=== PATIENT | male | born 1965 | race Hispanic/Latino ===

== ENCOUNTER 2024-05-27 16:03 | Inpatient (IN) | payer BC, SELFPAY ==
[2024-05-27] VITALS (13 sets, daily range): BP systolic 108–179; BP diastolic 75–121; BMI 17.9
--- NOTE | 2024-05-27 10:43 | ED.GENMED ---
History of Present Illness
General
Chief Complaint: Abdominal Symptoms
Time Seen by Provider: 05/27/24 09:53
History of Present Illness
History of Present Illness:
58-year-old male history of HIV, hepatocellular carcinoma last received chemo on 05/02 presenting with nausea, vomiting, right upper abdominal pain worsening over the past 3 days. Patient states that he had a bloody bowel movement this morning.
Patient denies history of hemorrhoids. Patient states that he is treated at [facility]. Patient states that he was recently admitted to [facility], discharged yesterday for intractable nausea/vomiting/abdominal pain. Patient states due to worsening symptoms he
presents to the ER today. Patient denies chest pain, fever, or urinary symptoms. Pt is not on blood thinners.
Phy Exam
Physical Exam
Physical Exam:
General: Alert, no acute distress
Head: NCAT
Eyes: clear conjunctiva
Neck: supple
Cardiac: regular rate and rhythm, no murmur
Lungs: clear to auscultation bilaterally. No wheezes, rales, or rhonchi. Speaking full unlabored sentences. No respiratory distress.
Abdomen: soft, nondistended ruq and epigastric tenderness. No rebound or guarding.
: bloody stools, guaiac positive. no hemorrhoid visualized
MSK: no lower extremity edema bilaterally. No deformity
Skin: warm, dry
Neuro: Alert and oriented x3. no focal deficits
Course
Orders/Labs/Results
Orders:
Orders
05/27/24
Electrocardiogram (*1) Stat
Comment: ALREADY DONE
05/27/24 10:28
CMP [Comprehensive Metabolic Panel] Urgent
Complete Blood Count/With Diff Urgent
Lipase Urgent
PTT Urgent
Prothrombin Time Urgent
05/27/24 10:42
CT Abd/pelvis Angio W/wo Iv Urgent
Comment:
Reason For Exam: hematchezia, hx hepatocellular ca, upper abd pn
05/27/24 10:46
0.9% Sodium Chloride 1000 ml [Nss] 1,000 ml IV BOLUS
Ondansetron Injectable [Zofran] 4 mg IV NOW STA
05/27/24 12:04
Metoclopramide [Reglan] 10 mg IV NOW STA
Abnormal Lab Results
05/27/24
10:28
WBC 3.6 L 10^3/uL
(4.8-10.8)
RDW 15.3 H %
(11.5-14.5)
Absolute Lymphs (auto) 0.9 L 10^3/uL
(1.2-3.4)
Monocytes % 13.9 H %
(1.7-9.3)
PT 14.8 H Sec
(11.4-14.6)
AST 196 H U/L
(17-59)
ALT 120 H U/L
(0-50)
Alkaline Phosphatase 152 H U/L
(38-126)
Lipase 401 H U/L
(23-300)
05/27/24 10:28
05/27/24 10:28
Vital Signs
Initial and Last Documented VS:
Initial Vital Signs
Temp Pulse Resp BP Pulse Ox
98.0 F 95 18 152/112 100
05/27/24 09:41 05/27/24 09:41 05/27/24 09:41 05/27/24 09:41 05/27/24 09:41
Last Documented Vital Signs
Temp Pulse Resp BP Pulse Ox
98.0 F 81 16 179/121 99
05/27/24 09:41 05/27/24 13:45 05/27/24 13:45 05/27/24 11:00 05/27/24 12:45
MDM/Problems Addressed
Differential Diagnosis Includes:
GI bleed, anemia, MARSHA, electrolyte abnormality, pancreatitis, worsening malignancy
MDM/Problems Addressed:
I discussed with patient's oncology team at [facility], states patient was admitted for intractable nausea/vomiting/upper abdominal pain last week, eloped yesterday. States last chemo was 05/02.
Results reviewed, elevated AST/ALT/alk phos (baseline, pt showed me his HIU portal with his most recent labs). Lipase 401 (previously normal last week). EKG shows NSR at 89bpm with MO 164 QTc 474 no stemi as read by me.
CTA abdomen/pelvis shows No findings to confirm active colonic bleeding. Limited evaluation of intestinal tract without oral contrast with some at least mild relative enhancement of some loops of small bowel as well as some fluid-filled small bowel,
nonspecific, cannot exclude enteritis. Numerous hepatic lesions corresponding with the patient's history of hepatocellular carcinoma. No prior outside study available for comparison. Questionable small volume gallbladder sludge.
On reevaluation, pt vomited after receiving zofran. Gave reglan with improvement. Discussed results with pt at bedside. Requested outside records, pt gave consent. Discussed with hospitalist for admission
*Critical Care Note
Total Time (30-74mins, 75-104mins- exclusive of procedures): Not Applicable
ED Attending Note
-
Portions of this chart may have been created with voice recognition software.� Occasional wrong word or��sound alike� substitutions may have occurred due to the inherent limitations of voice recognition software.
Discharge Plan
Departure
Patient Disposition: Admit
Date of Disposition: 05/27/24
Time of Disposition: 14:11
Presentation/result/management discussed w/ accepting MD/DO: Hospitalist
Discharge Problem:
Intractable nausea and vomiting, Hepatocellular carcinoma
Prescriptions:
No Action
ondansetron HCl [Zofran] 8 mg Tablet
8 mg PO [id number] PRN (Reason: nausea)
olanzapine 5 mg Tablet
5 mg PO DAILYPRN PRN (Reason: nausea)
gabapentin 100 mg Capsule
100 mg PO TIDPRN PRN (Reason: mild pain)
entecavir 1 mg Tablet
1 mg PO DAILY
Biktarvy 50-200-25 mg Tablet
1 tab PO DAILY
Referrals:
NONE,* [Family Provider] -
Interventions
Interventions:
*Risk Screen - Suicide Last Done: 05/27/24 09:41
*General Assessment Last Done: 05/27/24 09:41
*Neglect/Abuse Screening Last Done: 05/27/24 09:45
*ED- Fall Risk Assessment Last Done: 05/27/24 10:21
*ED COVID-19 Vaccine History Last Done: 05/27/24 09:45
AW-[id number]-[id number] Assessment Last Done: 05/27/24 10:21
Discharge Date and Time
Print Language: SWEDISH
[2024-05-27 10:53] LABS: Hematocrit 46.1 % (39.0-52.0); Hemoglobin 15.5 g/dL (13.0-18.0); Mean Corp Hgb Conc. 33.6 g/dL (33.0-37.0); Mean Corpuscular Hgb 27.3 pg (27.0-31.0); Mean Corpuscular Volume 81.3 fL (80.0-94.0); Mean Platelet Volume 9.6 fL (7.4-10.4); Platelet Count 146 10^3/uL (130-400); Red Blood Cell Count 5.67 10^6/uL (4.70-6.10); Red Cell Dist. Width 15.3 % (11.5-14.5); White Blood Cell Count 3.6 10^3/uL (4.8-10.8)
[2024-05-27 10:59] LABS: APTT 31.1 Sec (23.4-35.0); INR 1.13; PT 14.8 Sec (11.4-14.6)
[2024-05-27 11:08] LABS: ALT (SGPT) 120 U/L (0-50); AST (SGOT) 196 U/L (17-59); Alkaline Phosphatase 152 U/L (38-126); Blood Urea Nitrogen 14 mg/dl (9-20); Carbon Dioxide 30 mmol/L (22-30); Chloride 100 mmol/L (98-107); Estimated Creatinine Clearance 88 ml/min; Glucose 96 mg/dl (70-99); Lipase 401 U/L (23-300); Potassium 3.8 mmol/L (3.5-5.1); Sodium 135 mmol/L (135-145); Total Bilirubin 1.1 mg/dl (0.2-1.3); Total Protein 7.5 g/dl (6.3-8.2); eGFR > 60.00
[2024-05-27] MEDS: NSS 1000 IV ×2 (11:20→18:17)
[2024-05-27] MEDS: ZOFRAN 4 MG IV (11:20)
[2024-05-27 11:27] LABS: % Basophils 0.6 % (0-2); % Eosinophils 0.6 % (0-6); % Immature Granulocytes 0.3 % (0-0.5); % Lymphocytes 25.8 % (20.5-51.1); % Monocytes 13.9 % (1.7-9.3); % Neutrophils 58.8 % (42.2-75.2); Absolute Lymphocytes 0.9 10^3/uL (1.2-3.4); Absolute Monocytes 0.5 10^3/uL (0.1-0.6); Absolute Neutrophils 2.1 10^3/uL (1.4-6.5); Nucleated Red Blood Cells % 0 % (-)
[2024-05-27] MEDS: REGLAN 10 MG IV ×2 (12:06→18:22)
--- NOTE | 2024-05-27 14:29 | HPS.HSE ---
Family Physician
-
Family Physician: * NONE
Chief Complaint
-
Hemoptysis 2-3 episodes, bright red blood while wiping today
History of Present Illness
58-year-old male with history of HIV and hepatocellular carcinoma Dx 1 year ago last receiving chemo on 05/02 . He reports he has had nausea, vomiting, right upper abdominal pain over the past 3 days to 4 days. He is never had that so far apart
from chemo. He works in [employer] and on Sunday took the train in to have his chemo that was scheduled on 05/23 while they were taking his vital signs they noted his heart rate to be elevated in the 160s so they sent him [facility] to [facility] in [facility] where he was admitted for the past 4 days for tachycardia, intractable nausea vomiting and upper abdominal pain. he eloped yesterday per his oncology team in the ER spoke with. He states he has a black toilet on which he
voids. He reports 2-3 episodes of hemoptysis along with 1 episode this a.m. of bright red blood when wiping and 1 formed hard stool he is unable to see the color in the toilet as his toilet is black in color. He states they typically give him
Haldol subcu for nausea. He tends to get long episodes of nausea and vomiting post chemo but this did not develop until 3 to 4 days ago. He follows with Dr. Micaela Russell nurse practitioner infectious disease at [facility] for his
HIV. He has had a follow-up within the past 6 months he does not recall his CD4 counts however there were no medication changes to his HIV meds. He he said he states to get very anxious and suicidal knowing those numbers and cannot handle it.
He is guaiac positive with bloody stool in the ER no external hemorrhoids visualized. He has chronic transaminitis with AST and ALT around his baseline per phone portal labs. He had recent lipase is elevated at 401 was normal last week. He had
CTA abdomen and pelvis showing no GI bleed pancreas unremarkable and hepatocellular carcinoma. He has past medical history of HIV Dx 30 years ago, hepatocellular carcinoma Dx 1 year ago on chemo, chronic pain, anxiety/depression, marijuana use daily
Medical History
Past Medical History
Past Medical History: Reports Other
Additional Past Medical History:
HIV Dx 30 years ago
hepatocellular carcinoma Dx 1 year ago on chemo
chronic pain
anxiety/depression
marijuana use daily
Past Surgical History: Reports Other
Additional Past Surgical History:
Port placement right upper chest wall for chemotherapy
Social History
Tobacco: Smoker (Marijuana)
Alcohol: None
Drug: Marijuana (Smokes 2 joints a day)
Personal: Single
Living: Alone
Employment: Employed (Works in [employer])
Family History
Family History: Other (Mother brain aneurysm age 39 Sister liver cancer 2 sisters living healthy father unknown)
Allergies / Home Medications
Allergies reflects when Allergies were last updated in [employer].
Home Medications with original date entered in [employer]
Allergy/Medication List:
Allergies
Allergy/AdvReac Type Severity Reaction Status Date / Time
morphine Allergy Hallucinati Verified 05/27/24 10:36
ons
Home Medications
bictegravir 50 mg-emtricitabine 200 mg-tenofovir alafenam 25 mg tablet (Biktarvy) 1 tab PO DAILY 05/27/24
entecavir 1 mg tablet 1 mg PO DAILY 05/27/24
gabapentin 100 mg capsule 100 mg PO TIDPRN PRN mild pain 05/27/24
olanzapine 5 mg tablet 5 mg PO DAILYPRN PRN nausea 05/27/24
ondansetron HCl 8 mg tablet 8 mg PO [id number] PRN nausea 05/27/24
Review of Systems
-
History Source: Patient
A 12 point ROS was completed and negative except as noted: Yes
Constitutional: Denies Fever or Chills
EENT: Denies Sore Throat or Runny Nose
Respiratory: Reports Hemoptysis (Reported hemoptysis however suspect from vomiting)
Cardiac: Denies Chest Pain, Diaphoresis, Palpitations or Syncope
Abdomen/GI: Reports Abdominal Pain (Generalized), Nausea, Vomiting and Other (Bright red blood wiped on tissue); Denies Diarrhea or Constipated
: Denies Dysuria, Frequency, Flank Pain, Incontinence, Difficulty Voiding or Urgency
Musculoskeletal: Denies Joint Pain or Edema
Skin: Denies Itching or Rash
Neurological: Denies Dizzy or Headache
Endocrine: Reports No Symptoms
Hematologic/Lymphatic: Reports No Symptoms
Psych: Reports Calm
Physical Exam
Vital Signs
Vital Signs
Temp Pulse Resp BP Pulse Ox
98.0 F 81 16 179/121 99
05/27/24 09:41 05/27/24 13:45 05/27/24 13:45 05/27/24 11:00 05/27/24 12:45
Physical Exam
General: Comfortable, Conversant and Other (Anxious and talking about current medical issues and previous medical issues); No Pain, Fever or Chills
HEENT: NormoCephalic, Anicteric, Moist mucous membranes, PERRLA, [place] Conjunctivae and No Ptosis
Respiratory: Clear; No Wheezes, Rales or Rhonchi
Cardiac: S1/S2 and Regular Rhythm; No Murmur, Rub, Gallop or Peripheral Edema
GI: Soft, Non Tender, Non Distended, Normal Bowel Sounds, Tender (Generalized) and No Hepatosplenomegaly
Rectal: Hem Positive (In the ER)
Genito-urinary: Deferred by me
Musculoskeletal: No Clubbing, No Cyanosis and No Edema
Skin: Warm, Dry and IV/Catheter Site (Port right upper chest wall); No Rash
Neuro: AO x 3, No Motor Deficits, Nonfocal/grossly intact, Cranial Nerves Intact and No Sensory Deficits; No Slurred Speech, Facial Droop, Tremors or Sedated
Psych: Calm (Becomes anxious when talking about his medical history)
Laboratory Results
-
05/27/24 10:28
05/27/24 10:28
Laboratory Results
PT 14.8 Sec (11.4-14.6) H 05/27/24 10:28
INR 1.13 05/27/24 10:28
APTT 31.1 Sec (23.4-35.0) 05/27/24 10:28
Total Bilirubin 1.1 mg/dl (0.2-1.3) 05/27/24 10:28
AST 196 U/L (17-59) H 05/27/24 10:28
ALT 120 U/L (0-50) H 05/27/24 10:28
Alkaline Phosphatase 152 U/L (38-126) H 05/27/24 10:28
Lipase 401 U/L (23-300) H 05/27/24 10:28
Data Reviewed
-
CT Scan: Report Reviewed by me
Lab Data: Labs Reviewed by me
Impression/Plan
-
Impression/plan:
Admit to telemetry
#Acute on chronic nausea, vomiting, abdominal pain x 4 days ago concern for enteritis versus possible cyclical vomiting due to daily marijuana use smokes 1-2 joints a day
Was admitted to [facility] for tachycardia with heart rate 160 his chemo was held on 05/23
Eloped from [facility] yesterday 05/26/2024 for same thing per oncology team via emergency room records today
Was getting Haldol subcu at [facility] that was helping
-IV Zofran will continue
- IV Reglan will continue
-Monitor QTc given Zofran, Reglan
-IV Protonix 40 mg twice daily
- IV NSS 1 L given in ER
- Continue IV NSS 80 cc/h
- Clears and advance as tolerated
#Hemoptysis versus hematemesis 2-3 episodes likely GI due to vomiting with concern for Nikkie-Julian
- No current hemoptysis today 05/27/2024
- Monitor for any recurrent hemoptysis or hematemesis
#Rectal bleeding unclear cause likely constipation
Bright red blood on tissue when wiping today with 1 single formed hard stool in his black toilet
- Guaiac heme positive no external hemorrhoids
- No active bleed on CTA abdomen and pelvis
Hgb stable at 15.5
- Will monitor bowel movements for any further bleeding
# HTN urgency
Patient denies headache or dizziness
BP 179/121
-IV hydralazine 10 mg now and every 6 as needed SBP >165
EKG: NSR 89 bpm, QTc 474 MS, flattened T waves II,III,AVF, split P waves multiple leads most pronounced in anterior and lateral leads
#Elevated lipase new from last week unclear
Lipase [address] abdomen showing no abnormality of the pancreas
#Hepatocellular carcinoma Dx 1 year ago on chemotherapy with chronic neuropathic pain
Port right upper chest wall intact
Started chemo 6 months ago every 3 weeks
- Last chemo on 05/02/2024 follows at [facility]
-Chemo was held on 05/23/2024 due to heart rate 160
Next chemo is due 06/13/2024 if stable
- Patient takes Zyprexa 5 mg daily as needed nausea and Zofran 8 mg every 12 hours as needed nausea
- Continue gabapentin 100 mg p.o. 3 times daily as needed mild pain
#Chronic transaminitis in setting of hepatocellular carcinoma
AST 196, ALT 120, alk phos 152(appears baseline per patient phone lab portal)
- Follow CMP
#HIV Dx 30 years ago
- Follows with Micaela Russell nurse practitioner infectious disease [facility] David Harrison, unsure of CD4 count did have a check 6 months ago no changes in his medications
- Continue Entecavir 1 mg p.o. daily, Biktarvy 1 tab p.o. daily
DVT prophylaxis
- SCDs
Full code
[2024-05-27] MEDS: NSS (PRESERVATIVE FREE) 10 ML IV ×2 (15:42→20:31)
[2024-05-27] MEDS: APRESOLINE 10 MG IV (15:42)
[2024-05-27] MEDS: PROTONIX IV 40 MG IV ×2 (15:42→20:31)
--- NOTE | 2024-05-27 15:58 | W.PN.UPDATE ---
Update Note
Progress Note Update
This is an addendum to H&P written by Raina Canseco on 05/27/2024.� Patient seen and examined independently with [employer].
58-year-old male past medical history of hepatocellular carcinoma diagnosed last year on chemotherapy last received on 05/02, HIV diagnosed 30 years ago, chronic marijuana use, anxiety/depression presenting with nausea and vomiting and right upper
quadrant abdominal pain over the past 3 to 4 days.� Chemo scheduled for 05/23 but he was noted to be tachycardic up to 160s so he was admitted at [facility] for intractable nausea and vomiting and abdominal pain.� He eloped from the hospital.
Patient uses marijuana.
He started having cough with bloody hemoptysis yesterday and small amount as well as small amount of rectal bleeding since yesterday.
Labs show transaminitis which has been stable likely from hepatocellular carcinoma.
Lipase of 400.� White cell count of 3.6. Hemoglobin of 15.
CT angio abdomen pelvis shows no active colonic bleeding, mild enhancement of some loops of small bowel possibly enteritis.
Transaminitis stable as per ER who looked at records.
Patient with intractable nausea and vomiting and likely hematemesis from Nikkie-Julian versus enteritis versus exacerbated by marijuana use.� Also with hypertensive urgency.� Clear liquid diet.� Antiemetics.� IV fluids.� IV Protonix 40 twice daily.�
Monitor hemoglobin.� As needed hydralazine for elevated blood pressure.
Consider GI if further bleeding or hemoglobin drop.�
[2024-05-28] MEDS: MELATONIN 5 MG PO (01:25)
[2024-05-28] MEDS: ZOFRAN 4 MG IV ×2 (01:25→15:08)
[2024-05-28 03:00] VITALS: BP 100/64
[2024-05-28] MEDS: NSS 1000 IV (05:29)
[2024-05-28 08:26] LABS: % Basophils 0.7 % (0-2); % Eosinophils 1.1 % (0-6); % Lymphocytes 33.6 % (20.5-51.1); % Neutrophils 47.6 % (42.2-75.2); Absolute Monocytes 0.5 10^3/uL (0.1-0.6); Absolute Neutrophils 1.4 10^3/uL (1.4-6.5); Hematocrit 46.2 % (39.0-52.0); Hemoglobin 15.4 g/dL (13.0-18.0); Mean Corp Hgb Conc. 33.3 g/dL (33.0-37.0); Mean Corpuscular Hgb 27.5 pg (27.0-31.0); Mean Corpuscular Volume 82.4 fL (80.0-94.0); Mean Platelet Volume 10.2 fL (7.4-10.4); Nucleated Red Blood Cells % 0 % (-); Platelet Count 138 10^3/uL (130-400); Red Blood Cell Count 5.61 10^6/uL (4.70-6.10); Red Cell Dist. Width 15.6 % (11.5-14.5); White Blood Cell Count 2.8 10^3/uL (4.8-10.8)
[2024-05-28 08:29] VITALS: BP 147/97
[2024-05-28 08:43] LABS: ALT (SGPT) 107 U/L (0-50); AST (SGOT) 153 U/L (17-59); Albumin 3.8 g/dl (3.5-5.0); Alkaline Phosphatase 144 U/L (38-126); Blood Urea Nitrogen 9 mg/dl (9-20); Calcium 8.7 mg/dl (8.4-10.2); Carbon Dioxide 21 mmol/L (22-30); Chloride 105 mmol/L (98-107); Estimated Creatinine Clearance 88 ml/min; Glucose 84 mg/dl (70-99); Potassium 3.9 mmol/L (3.5-5.1); Sodium 137 mmol/L (135-145); Total Bilirubin 0.9 mg/dl (0.2-1.3); eGFR > 60.00
[2024-05-28] MEDS: PROTONIX IV 40 MG IV (09:29)
[2024-05-28] MEDS: BIKTARVY 50-200-25 MG TABLET 1 TABLET PO (09:29)
[2024-05-28] MEDS: NSS (PRESERVATIVE FREE) 10 ML IV (09:29)
[2024-05-28 11:28] VITALS: BP 105/74
[2024-05-28 14:34] VITALS: BMI 17.9
[2024-05-28 15:30] VITALS: BP 144/97
--- NOTE | 2024-05-28 15:39 | CM ---
Sleepy oriented patient who lives alone in an apartment with 2 stepe to enter and 2 more to living area.He is independent in driving and in all activities of daily living.He was offered VN he declined need.He uses a walker prn.
No VN hx / No SNF history
Pharmacy [facility]
PCP DR Kamini Chauhan
PLAN Home Declined VN
[2024-05-28 15:59] VITALS: PULSE 110; PULSE 130; O2SAT 98
--- NOTE | 2024-05-28 17:23 | W.PN.HOSP.TC ---
Addendum entered and electronically signed by Calvin Harper MD 05/28/24 23:46:
Attending Addendum-
I saw and evaluated the patient. I reviewed the resident�s note and agree with findings and plan as documented in the resident�s note. Sub: feels greatly improved.rica diet, 'im ready to go home' denies N/V blood in stool hemturia or hemoptysis Full
12 point ROS reviewed and negative except as documented Exam: Vitals reviewed in chart GEN-NAD heart RRR lungs clear abd soft LE no edema
Plan:
#Acute on chronic nausea, vomiting, abdominal pain x 4 days ago concern for enteritis versus possible cyclical vomiting due to daily marijuana use smokes 1-2 joints a day
Was admitted to [facility] for tachycardia with heart rate 160 his chemo was held on 05/23
Eloped from [facility] yesterday 05/26/2024 for same thing per oncology team via emergency room records today
Was getting Haldol subcu at [facility] that was helping
-Zofran and Reglan helping
-rica PO
-cbc stable
#Hemoptysis versus hematemesis 2-3 episodes likely GI due to vomiting with concern for Nikkie-Julian
- No current hemoptysis
- start PPI BID x 1 month then daily
#Rectal bleeding unclear cause likely constipation
Bright red blood on tissue when wiping today with 1 single formed hard stool in his black toilet
- Guaiac heme positive no external hemorrhoids
- No active bleed on CTA abdomen and pelvis
- Hgb stable at 15.5
# HTN urgency
-resolved
#Elevated lipase new from last week unclear
Lipase [address]
CT abdomen showing no abnormality of the pancreas
#Hepatocellular carcinoma Dx 1 year ago on chemotherapy with chronic neuropathic pain
Port right upper chest wall intact
Started chemo 6 months ago every 3 weeks
- Last chemo on 05/02/2024 follows at [facility]
-Chemo was held on 05/23/2024 due to heart rate 160
Next chemo is due 06/13/2024 if stable
- Patient takes Zyprexa 5 mg daily as needed nausea-not effective cont Zofran 8 mg every 12 hours as needed nausea
- Continue gabapentin 100 mg p.o. 3 times daily as needed mild pain
#Chronic transaminitis in setting of hepatocellular carcinoma
AST 196, ALT 120, alk phos 152(appears baseline per patient phone lab portal)
- Follow CMP resolving
#HIV Dx 30 years ago
- Follows with Micaela Russell nurse practitioner infectious disease [facility] David Harrison, unsure of CD4 count did have a check 6 months ago no changes in his medications
- Continue Entecavir 1 mg p.o. daily, Biktarvy 1 tab p.o. daily
DVT prophylaxis
- SCDs
Full code
Time spent coordinating care, DC planning, review of DC plan of care with resident, transition of care, review of records, med rec/scripts sent electronically, consults, notes, d/w consultants, nursing, family, and CM� 32 mins
Original Note:
Today's Communication/Plan
-
Contiue IV protonix, follow CBC, DC planning
Assessment / Plan
Assessment / Plan
58-year-old male with history of HIV, hepatocellular carcinoma, chronic transaminitis, anxiety/depression, marijuana use, who presents with intractable nausea/vomiting, hematemesis/hemoptysis, bright red blood per rectum.
Acute on chronic nausea/vomiting/abdominal pain:
Patient reports that symptoms follows pattern of N/V/ABD pain starting about 2 weeks after chemotherapy
Takes ondansetron and olanzapine as needed for nausea at home. Reports olanzapine now ineffective.
-Continue IV Zofran/Reglan, switch to p.o. on discharge. Reports improves sx
-Do not restart olanzapine on discharge
-Continue IVF
GI bleed:
Hemoptysis/hematemesis
Bright red blood per rectum upon wiping after stool. Patient reports chronic constipation
-Hemoglobin stable with no recurrent hematemesis or hematochezia
-Continue IV pantoprazole 40mg BID, switch to PO upon discharge
Hepatocellular carcinoma dx 1 year ago on chemotherapy with chronic neuropathic pain
Port right upper chest wall intact
Started chemo 6 months ago every 3 weeks
- Last chemo on 05/02/2024 follows at [facility]
-Chemo was held on 05/23/2024 due to heart rate 160
Next chemo is due 06/13/2024 if stable
- Continue gabapentin 100 mg p.o. 3 times daily as needed mild pain
Chronic transaminitis in setting of hepatocellular carcinoma:
Slight improvement today although generally appears around baseline per patient phone lab portal
- Follow CMP
Marijuana use:
Smokes marijuana a few times a week
Patient reports it helps with appetite, and to control nausea/vomiting
Chronic constipation:
-Bowel regimen, continue upon discharge
HIV Dx 30 years ago:
- Follows with Micaela Russell nurse practitioner infectious disease [facility] David Harrison, unsure of CD4 count did have a check some months ago, no changes in his medications. Has routine follow-ups every 6 months.
- Continue Entecavir 1 mg p.o. daily, Biktarvy 1 tab p.o. daily
DVT prophylaxis
- SCDs
Anticipated Discharge: Today
Subjective/Interval History
-
Date of Service: May 28, 2024
No overnight events
Objective Data
-
Labs:
Laboratory Results
05/28/24
07:27
WBC 2.8 L
Hgb 15.4
Hct 46.2
Plt Count 138
Sodium 137
Potassium 3.9
Chloride 105
Carbon Dioxide 21 L
BUN 9
Creatinine 0.7
Glucose 84
Calcium 8.7
Total Bilirubin 0.9
AST 153 H
ALT 107 H
Alkaline Phosphatase 144 H
Vital Signs:
Vital Signs
Temp Pulse Resp BP Pulse Ox
98.3 F 90 16 144/97 100
05/28/24 15:30 05/28/24 15:30 05/28/24 15:30 05/28/24 15:30 05/28/24 15:30
I&O
05/27/24 05/28/24 05/29/24
06:59 06:59 06:59
Intake Total 1680 / 1680
Output Total 700 / 700
Balance 980 / 980
Review of Systems
-
History Source: Patient
Constitutional: Reports No Appetite and Fatigue
Respiratory: Denies Trouble Breathing
Cardiac: Denies Chest Pain
Abdomen/GI: Reports Constipated; Denies Abdominal Pain, Nausea, Vomiting or Diarrhea
Genitourinary: Denies Dysuria or Difficulty Voiding
Physical Exam
-
General: No Apparent Distress and Comfortable
HEENT: Normocephalic, Atraumatic, Moist Mucous Membranes and Anicteric
Respiratory: Clear to Auscultation and Non Labored Respirations; Negative Wheezes, Rales, Rhonchi or Crackles
Cardiac: Regular Rhythm and S1/S2; Negative Murmur or Calf Tenderness
GI: Soft, Nontender, Nondistended and Normal Bowel Sounds
Musculoskeletal: No Clubbing, No Cyanosis and No Edema
Skin: Warm and Dry
Neuro: Awake, Alert and Oriented
Psych: Calm
--- NOTE | 2024-05-29 06:35 | W.DCSUMMARY ---
Addendum entered and electronically signed by Calvin Harper MD 05/29/24 23:26:
Read, reviewed, and agree. See same day progress note for additional details. DC date 05/28-update.
addendum-dx:severe protein calorie malnutrition
Se Harper MD
Original Note:
Documented by User: Kiara Arreguin MD, Resident 05/29/24 17:35
Discharge Summary
Discharge Data
Date of Admission: 05/27/24
Date of Discharge: 05/29/24
-
Pending Results: No
Hospital Course
Discharging Physician : Kiara Arreguin MD., Calvin Harper MD.
Disposition : Home
Principal Discharge diagnosis : Hemoptysis/hematemesis, acute on chronic nausea/vomiting/abdominal pain, rectal bleeding,
Chronic Discharge diagnosis : hepatocellular carcinoma, chronic transaminitis, HIV, underweight
Hospital Course :
58-year-old male with the above pmh who presented with intractible nausea/vomiting/abdominal discomfort x 3-4 days, with recent hematemesis vs hemoptysis. He reported BRBPR on toilet paper when he wiped after a small, hard bowel movement. He
described his symptoms as similar in presentation and timing as his usual post-chemo GI upset. In the ED, BP up to 179/121, with rest of vitals normal. WBC 3.6, Hgb 15.5. BMP normal, with lipase 401, AST 196, ALT 120, alk phos 152. He was guaiac
positive with bloody stool in the ER, no external hemorrhoids visualized.
Nausea/vomiting was controlled with IV Zofran/Reglan as needed.
Hypertension was controlled with Hydralazine 10mg once. Hemoptysis/hematemesis was presumed to be of GI origin, potentially from reanna joel tears given intractible vomiting. IVF fluid was administered. With control of nausea and vomiting, this did
not recur. No recurrent rectal bleed. He was started on PPI therapy. Patient reported history of constipation and bowel regimen was started. He is to continue this at home. Symptoms continued to improve, he tolerated PO intake, and he was started on
PPI therapy.
Chronic home medications were continued as appropriate.
He was deemed stable to be discharged to his home with the following recommendations:
- Start pantoprazole 40mg BID x 1 month then continue once daily
- Antiemetics as needed
- Bowel regimen for contipation
- routine follow up with Micaela Russell nurse practitioner infectious disease [facility]
- Follow up with PCP shortly. If you do not have a PCP, you can see one at the [facility], or other PCP of your choosing.
Important imaging findings :
CT abdomen/pelvis angio with/without IV contrast 05/27/24:
No findings to confirm active colonic bleeding.
Limited evaluation of intestinal tract without oral contrast with some at least mild relative enhancement of some loops of small bowel as well as some fluid-filled small bowel, nonspecific, cannot exclude enteritis.
Numerous hepatic lesions corresponding with the patient's history of hepatocellular carcinoma. No prior outside study available for comparison.
Questionable small volume gallbladder sludge
Discharge Plan
-
Patient Disposition: Home (Routine Discharge)
Discharge Diagnosis/Procedures: Hemoptysis, hematemesis, bright red blood per rectum, hypertensive urgency, acute on chronic nausea and vomiting
Condition: Good
Diet: No restrictions
Activity: No restrictions
Driving Restrictions: As prior to admission
Bathing Restrictions: None
Referrals:
NONE,* [Family Provider] -
Kiara Arreguin MD, Resident [[facility] Resident Year2] - in one week
([facility]
[address], [address]nd [place] [address]
[phone])
Additional Discharge Medication Instructions: Please follow up with your primary care physician shortly.
If you do not have a PCP, you can follow up with Dr. Kiara Arreguin at the [facility], or other PCP of your choosing.
Prescriptions:
New
polyethylene glycol 3350 17 gram Powder In Packet
17 g PO DAILY Qty: 0 0RF
metoclopramide HCl 10 mg tablet
10 mg PO Q6H PRN (Reason: nausea and vomiting) Qty: 30 0RF
sennosides-docusate sodium [2-in-1 Laxative] 8.6-50 mg tablet
1 tab-cap PO HS PRN (Reason: Constipation) Qty: 30 0RF
pantoprazole 40 mg tablet,delayed release (DR/EC)
40 mg PO BID 30 Days Qty: 60 0RF
Continued
gabapentin 100 mg Capsule
100 mg PO TIDPRN PRN (Reason: mild pain)
entecavir 1 mg Tablet
1 mg PO DAILY
Biktarvy 50-200-25 mg Tablet
1 tab PO DAILY
ondansetron HCl 8 mg Tablet
8 mg PO [id number] PRN (Reason: nausea) Qty: 30 0RF
Discontinued
olanzapine 5 mg Tablet
5 mg PO DAILYPRN PRN (Reason: nausea)
Discharge Orders:
Discharge Patient (As Directed); Ordered 05/28/24
Ordered By: Kiara Arreguin
Discharge Date and Time
Discharge Date/Time: 05/28/24 16:15
Print Language: PANAMANIAN

Documented by User: Calvin Harper MD 05/29/24 23:25
Discharge Summary
Discharge Data
Date of Admission: 05/27/24
Date of Discharge: 05/29/24
Discharge Plan
-
Patient Disposition: Home (Routine Discharge)
Discharge Diagnosis/Procedures: Hemoptysis, hematemesis, bright red blood per rectum, hypertensive urgency, acute on chronic nausea and vomiting
Condition: Good
Diet: No restrictions
Activity: No restrictions
Driving Restrictions: As prior to admission
Bathing Restrictions: None
Referrals:
NONE,* [Family Provider] -
Kiara Arreguin MD, Resident [[facility] Resident Year2] - in one week
([facility]
[address], [address] [place] [address]
[phone])
Additional Discharge Medication Instructions: Please follow up with your primary care physician shortly.
If you do not have a PCP, you can follow up with Dr. Kiara Arreguin at the [facility], or other PCP of your choosing.
Prescriptions:
New
polyethylene glycol 3350 17 gram Powder In Packet
17 g PO DAILY Qty: 0 0RF
metoclopramide HCl 10 mg tablet
10 mg PO Q6H PRN (Reason: nausea and vomiting) Qty: 30 0RF
sennosides-docusate sodium [2-in-1 Laxative] 8.6-50 mg tablet
1 tab-cap PO HS PRN (Reason: Constipation) Qty: 30 0RF
pantoprazole 40 mg tablet,delayed release (DR/EC)
40 mg PO BID 30 Days Qty: 60 0RF
Continued
gabapentin 100 mg Capsule
100 mg PO TIDPRN PRN (Reason: mild pain)
entecavir 1 mg Tablet
1 mg PO DAILY
Biktarvy 50-200-25 mg Tablet
1 tab PO DAILY
ondansetron HCl 8 mg Tablet
8 mg PO [id number] PRN (Reason: nausea) Qty: 30 0RF
Discontinued
olanzapine 5 mg Tablet
5 mg PO DAILYPRN PRN (Reason: nausea)
Discharge Orders:
Discharge Patient (As Directed); Ordered 05/28/24
Ordered By: Kiara Arreguin
Discharge Date and Time
Discharge Date/Time: 05/28/24 16:15
Print Language: PANAMANIAN
--- NOTE | 2024-05-29 10:24 | PN.CDI ---
CDI
- -
CDI:
Physician Documentation Request
Admit Date: 05/27/24 16:03
Dear Doctor Kallie,
05/28 assessment and notes state 'BMI 17.9 (underweight <18.5)... Pt meet criteria for severe protein calorie with estimated 80 lb 54.7% wt loss over the past 1 yr per pt report, prolonged poor intake prior to hospital admit < 75% for > 1 month,
severe subcutaneous fat (orbital, tricep) and severe muscle loss (temporal, buccal)'
Based on the above information and your assessment, which of the following most accurately represents the patient's nutritional status?
Severe Malnutrition
Other (please specify)
[place] Criteria ([facility] Hospitalist 2017)
2 or more criteria must be present for either
non severe or severe malnutrition
Note that the criteria differs related to the
presence of an acute or chronic illness
Acute Illness Chronic Illness
Energy Intake Non Severe: <75% for >7 days Non Severe: <75% for >1 month
Severe: <50% for >5 days Severe: <75% for >1 month
Weight Loss Non Severe: 1-2% over 1 week Non Severe: 5% over 1 month
5% over 1 month 7.5% over 3 months
7.5% over 3 months 10% over 6 months
1 year N/A 20% over 1 year
Severe: >2% over 1 week Severe: >5% over 1 month
>5% over 1 month >7.5% over 3 months
>7.5% over 3 months >10% over 6 months
1 year N/A >20% over 1 year
Body Fat Non Severe: Mild Decrease Non Severe: Mild Loss
Severe: Moderate Decrease Severe: Severe Loss
Muscle Mass Non Severe: Mild Decrease Non Severe: Mild Loss
Severe: Moderate Decrease Severe: Severe Loss
Fluid Accumulation Non Severe: Mild Accumulation Non Severe: Mild Accumulation
Severe: Moderate to severe Severe: Moderate to severe
accumulation accumulation
Reduced Fitter Armament Strength Non Severe: N/A Non Severe: N/A
Severe: Measurably reduced Severe: Measurably reduced
Use of terms such as suspected, likely, concern for, or probable (associated with a specific diagnosis that is being evaluated, monitored, or treated as if it exists) are acceptable and can be coded in the inpatient setting, when documented at the
time of discharge.
Thank you,
Emma Ghosh RN, BSN
CDI Specialist
tiger text
Please use your independent medical judgment in providing your response.
== END 2024-05-28 16:15 | disposition home or self-care (01) | DRG 377 ==
LOC: 1 ACUTE 16:03
PROVIDERS: Clinical Nurse Specialist Family Health; Student in an Organized Health Care Education/Training Program; ADMITTING PHYSICIAN Hospitalist; ATTENDING PHYSICIAN Family Medicine; EMERGENCY PHYSICIAN Emergency Medicine
DX: K62.5 Hemorrhage of anus and rectum (principal); E43 Unspecified severe protein-calorie malnutrition; C22.0 Liver cell carcinoma; Z68.41 Body mass index [BMI] 40.0-44.9, adult; R11.15 Cyclical vomiting syndrome unrelated to migraine; K22.6 Gastro-esophageal laceration-hemorrhage syndrome; K52.9 Noninfective gastroenteritis and colitis, unspecified; K59.00 Constipation, unspecified; I16.0 Hypertensive urgency; Z21 Asymptomatic human immunodeficiency virus [HIV] infection status; F12.90 Cannabis use, unspecified, uncomplicated; F32.A Depression, unspecified; F41.9 Anxiety disorder, unspecified; G89.29 Other chronic pain
CPT/HCPCS: 74174; 80053; 83690; 85025; 85610; 85730; 93005; 96361; 96374; 96375; 97162; 99285; Q9967